=== PATIENT | female | born 1980 | race Caucasian/White ===

== ENCOUNTER 2016-09-14 23:02 | Emergency (ER) | payer MEDICAID ==
[2015-02-27 08:16] VITALS: BMI 18.8
[~2016-09-14 23:02] MED LIST: CARAFATE1 G PO; DEXILANT60 MG PO; HYDROCODON-ACET15 ML PO; KLONOPIN0.5 MG PO; KLONOPIN1 MG PO; LAMICTAL XR25 MG PO; LAMICTAL100 MG PO; LITHIUM CARBON150 MG PO; LITHIUM CARBON300 MG PO; MELATONIN 10 M1 EACH PO; TOPAMAX200 MG PO; VALIUM5 MG PO; ZOFRAN ODT4 MG/UDTAB PO; ZOVIRAX200 MG PO
== END 2016-09-15 02:22 | disposition home or self-care (01) ==
LOC: D.ER 23:02
DX: M79.1 Myalgia (principal); R07.9 Chest pain, unspecified; K21.9 Gastro-esophageal reflux disease without esophagitis; F17.200 Nicotine dependence, unspecified, uncomplicated

== ENCOUNTER 2016-11-17 11:00 | Emergency (ER) | payer MEDICAID ==
[2015-02-27 08:16] VITALS: BMI 18.8
[2016-11-17 11:56] LABS: BASOPHILS 0.5 % (0-2); EOSINOPHILS 1.2 % (0-7); HEMOGLOBIN 13.7 g/dL (12-16); IMMATURE GRANULOCYTES 0.1 % (0-5); LYMPHOCYTES 35.5 % (15-50); MCH 30.8 pg (26.0-34.0); MCHC 34.3 g/dL (31.0-37.0); MCV 89.9 fL (80.0-100.0); MEAN PLATELET VOLUME 10.5 fL (7.4-10.4); NEUTROPHILS 53.7 % (40-80); PLATELET COUNT 277 10x3/uL (130-400); RBC 4.45 10x6/uL (4.00-5.40); RDW 12.4 % (11.5-14.5); WBC 8.4 10x3/uL (4.8-10.8)
[2016-11-17 12:15] LABS: AMYLASE - SERUM 76 U/L (25-115); LIPASE 141 U/L (73-393)
[2016-11-17 12:16] LABS: TROPONIN-I < 0.017 ng/mL (0.000-0.060)
[2016-11-17 12:36] LABS: THYROID STIMULATING HORMONE 0.77 uIU/mL (0.36-3.74)
[2016-11-17 12:47] LABS: APPEARANCE CLEAR (CLEAR); BILIRUBIN NEGATIVE (NEGATIVE); COLOR YELLOW (YELLOW); GLUCOSE NEGATIVE (NEGATIVE); KETONE NEGATIVE (NEGATIVE); LEUKOCYTE ESTERASE NEGATIVE (NEGATIVE); NITRITE NEGATIVE (NEGATIVE); PROTEIN NEGATIVE (NEGATIVE); UROBILINOGEN NORMAL (NORMAL)
== END 2016-11-17 14:30 | disposition home or self-care (01) ==
LOC: D.ER 11:00
PROVIDERS: Family Medicine
DX: R10.13 Epigastric pain (principal); R00.2 Palpitations; K44.9 Diaphragmatic hernia without obstruction or gangrene; K21.9 Gastro-esophageal reflux disease without esophagitis; F17.200 Nicotine dependence, unspecified, uncomplicated

== ENCOUNTER 2016-11-17 19:30 | Emergency (ER) | payer MEDICAID ==
[2015-02-27 08:16] VITALS: BMI 18.8
== END 2016-11-17 20:08 | disposition left against medical advice (07) ==
LOC: D.ER 19:30
DX: R07.9 Chest pain, unspecified (principal)

== ENCOUNTER 2017-06-08 10:57 | Emergency (ER) | payer MEDICAID ==
[2015-02-27 08:16] VITALS: BMI 18.8
[2017-06-08 12:36] LABS: BASOPHILS 0.2 % (0-2); EOSINOPHILS 0.9 % (0-7); HEMATOCRIT 42.6 % (36.0-48.0); HEMOGLOBIN 14.2 g/dL (12-16); IMMATURE GRANULOCYTES 0.2 % (0-5); LYMPHOCYTES 11.7 % (15-50); MCH 30.4 pg (26.0-34.0); MCHC 33.3 g/dL (31.0-37.0); MCV 91.2 fL (80.0-100.0); MEAN PLATELET VOLUME 10.1 fL (7.4-10.4); MONOCYTES 4.3 % (2-11); NEUTROPHILS 82.7 % (40-80); PLATELET COUNT 229 10x3/uL (130-400); RBC 4.67 10x6/uL (4.00-5.40); RDW 12.3 % (11.5-14.5); WBC 10.9 10x3/uL (4.8-10.8)
[2017-06-08 12:48] LABS: AMYLASE - SERUM 69 U/L (25-115); LIPASE 123 U/L (73-393)
== END 2017-06-08 13:21 | disposition home or self-care (01) ==
LOC: D.ER 10:57
PROVIDERS: Emergency Medicine
DX: K21.9 Gastro-esophageal reflux disease without esophagitis (principal); F17.200 Nicotine dependence, unspecified, uncomplicated

== ENCOUNTER 2017-11-27 07:38 | Emergency (ER) | payer MEDICAID ==
[~2017-11-27] VITALS: Ht 160 cm; Wt 63.6 kg
[2017-11-27 07:45] VITALS: Ht 160 cm; Wt 63.6 kg
[2017-11-27 08:04] LABS: APPEARANCE CLEAR (CLEAR); BILIRUBIN NEGATIVE (NEGATIVE); COLOR YELLOW (YELLOW); GLUCOSE NEGATIVE (NEGATIVE); KETONE NEGATIVE (NEGATIVE); NITRITE NEGATIVE (NEGATIVE); PROTEIN NEGATIVE (NEGATIVE); SPECIFIC GRAVITY 1.005 (1.005-1.020); UROBILINOGEN NORMAL (NORMAL)
[2017-11-27 08:06] LABS: BASOPHILS 0.2 % (0-2); EOSINOPHILS 0.6 % (0-7); HEMATOCRIT 42.7 % (36.0-48.0); IMMATURE GRANULOCYTES 0.1 % (0-5); LYMPHOCYTES 37.2 % (15-50); MCH 30.6 pg (26.0-34.0); MCHC 35.1 g/dL (31.0-37.0); MCV 87.1 fL (80.0-100.0); MEAN PLATELET VOLUME 10.5 fL (7.4-10.4); MONOCYTES 12.8 % (2-11); NEUTROPHILS 49.1 % (40-80); RDW 11.9 % (11.5-14.5); WBC 8.4 10x3/uL (4.8-10.8)
[2017-11-27 08:07] LABS: PLATELET COUNT 307 10x3/uL (130-400)
[2017-11-27 08:18] LABS: ALBUMIN 4.3 g/dL (3.4-5.0); ANION GAP 12.4 mmol/L (8-16); BILIRUBIN - TOTAL 0.64 mg/dL (0.2-1.3); CALCIUM 8.5 mg/dL (8.5-10.1); CREATININE - SERUM 0.9 mg/dL (0.6-1.3); POTASSIUM - SERUM 3.4 mmol/L (3.5-5.1); PROTEIN - SERUM 8.4 g/dL (6.4-8.2)
[2017-11-27] MEDS ORDERED: OMNICEF300 MG PO (10:50)
[2017-11-27 10:57] VITALS: BP 122/80
== END 2017-11-27 17:07 | disposition home or self-care (01) ==
LOC: D.ER 07:38
PROVIDERS: Family Medicine
DX: J01.90 Acute sinusitis, unspecified (principal); R53.81 Other malaise; M79.1 Myalgia

== ENCOUNTER 2018-02-17 19:12 | Emergency (ER) | payer MEDICAID ==
[~2018-02-17] VITALS: Ht 160 cm; Wt 61.4 kg
[~2018-02-17 19:12] MED LIST changes: +OMNICEF300 MG PO
[2018-02-17 19:19] VITALS: Ht 160 cm; Wt 61.4 kg
[2018-02-17] MEDS ORDERED: AUGMENTIN 875-11 TAB PO (20:25)
[2018-02-17] MEDS ORDERED: FLUTICASONE PRO16 GM NASAL (20:25)
[2018-02-17 20:42] VITALS: BP 125/70
== END 2018-02-17 20:43 | disposition home or self-care (01) ==
LOC: D.ER 19:12
DX: J01.90 Acute sinusitis, unspecified (principal)

== ENCOUNTER 2018-03-18 17:32 | Emergency (ER) | payer MEDICAID ==
[~2018-03-18] VITALS: Ht 160 cm; Wt 60.5 kg
[~2018-03-18 17:32] MED LIST changes: +AUGMENTIN 875-11 TAB PO; +FLUTICASONE PRO16 GM NASAL
[2018-03-18 17:53] VITALS: Ht 160 cm; Wt 60.5 kg
[2018-03-18 18:36] LABS: BASOPHILS 0.5 % (0-2); EOSINOPHILS 1.3 % (0-7); HEMATOCRIT 38.8 % (36.0-48.0); IMMATURE GRANULOCYTES 0.1 % (0-5); LYMPHOCYTES 46.7 % (15-50); MCHC 33.5 g/dL (31.0-37.0); MCV 89.6 fL (80.0-100.0); MONOCYTES 8.5 % (2-11); NEUTROPHILS 42.9 % (40-80); PLATELET COUNT 243 10x3/uL (130-400); RBC 4.33 10x6/uL (4.00-5.40); RDW 12.1 % (11.5-14.5); WBC 8.2 10x3/uL (4.8-10.8)
[2018-03-18 18:44] LABS: ALBUMIN 3.8 g/dL (3.4-5.0); ALKALINE PHOSPHATASE 82 U/L (46-116); ALT (SGPT) 60 U/L (10-68); BILIRUBIN - TOTAL 0.17 mg/dL (0.2-1.3); CALC OSMOLALITY 276 mosm/kg (275-300); CALCIUM 8.5 mg/dL (8.5-10.1); CARBON DIOXIDE 22.6 mmol/L (21.0-32.0); CHLORIDE - SERUM 105 mmol/L (98-107); CREATININE - SERUM 0.6 mg/dL (0.6-1.3); GLUCOSE 100 mg/dL (74-106); POTASSIUM - SERUM 3.2 mmol/L (3.5-5.1); PROTEIN - SERUM 7.4 g/dL (6.4-8.2); SODIUM 139 mmol/L (136-145); UREA NITROGEN 11 mg/dL (7-18); eGFR NON AFRICAN AMERICAN > 90 mL/min (90-120)
[2018-03-18 18:57] LABS: CREATINE KINASE 68 UL (21-215)
[2018-03-18 19:01] LABS: TROPONIN-I < 0.017 ng/mL (0.000-0.060)
[2018-03-18] MEDS ORDERED: ATIVAN1 MG PO (19:16)
[2018-03-18 19:50] VITALS: BP 116/78
== END 2018-03-18 19:50 | disposition home or self-care (01) ==
LOC: D.ER 17:32
PROVIDERS: Family Medicine
DX: R07.9 Chest pain, unspecified (principal); F41.9 Anxiety disorder, unspecified; R53.83 Other fatigue; R42 Dizziness and giddiness

== ENCOUNTER → 2018-03-28 09:44 | Outpatient (CLI) | payer MEDICAID ==
[2018-03-18 17:53] VITALS: BMI 23.6
--- NOTE | ~2018-03-28 | ST ---
PATIENT:CHRISTIANO WERNER MEDICAL RECORD: [id number] SEX: F LOCATION:[facility] ORDER #: ADMISSION DATE: 03/28/18 AGE OF PATIENT: 37 REFERRING PHYSICIAN: INTERPRETING PHYSICIAN: DIAMOND MCNAIR MD DATE OF SERVICE: 03/28/2018 PROCEDURE: Nuclear stress test. INDICATION: Chest pain, family history of coronary artery disease. She was exercised on standard Rui protocol for 9 minutes, terminated due to achievement of max target heart rate response with 32 mCi of sestamibi injected at peak stress, 11 mCi were used previously for rest images. FINDINGS: Gated SPECT reveals a preserved ejection fraction of 63% with good wall motioning, thickening, and brightening throughout all segments. SPECT imaging Cardiolite was used as myocardial perfusion agent. There is reversible ischemia anteriorly and apically. This includes basal, mid, apical anterior segments as well as the apex itself. The degree of reversibility is mild to moderate. The amount of myocardium involved is moderate. OVERALL IMPRESSION: This is an abnormal nuclear stress test with reversible ischemia anteroapically, suggestive of hemodynamically significant coronary artery disease. We will proceed with coronary angiography as followup study. TRANSINT:[id number] Voice Confirmation ID: [id number] DOCUMENT ID: [id number] DIAMOND MCNAIR MD CC: [id number] DICTATION DATE: 03/30/18 1039 LINEWORKER: 03/30/181915 [facility] CLI 03/28/18 [address] [place] [address]
[~2018-03-28 09:44] MED LIST changes: +ATIVAN1 MG PO
== END | disposition home or self-care (01) ==
LOC: D.HCCARDIO 09:44
DX: R07.9 Chest pain, unspecified (principal)

== ENCOUNTER 2018-04-01 08:31 | Outpatient (CLI) | payer MEDICAID ==
[~2018-04-01] VITALS: Ht 160 cm; Wt 60.5 kg
--- NOTE | ~2018-04-01 | HEMODYNAMI ---
PATIENT:CHRISTIANO WERNER MEDICAL RECORD: [id number] : 78 LOCATION:[facility] ADMISSION DATE: 04/01/18 Generatedon:04/01/201813:58 Patient name: CHRISTIANO WERNER Patient #: [id number] SSN: : 1980 Date of study: 04/01/2018 Page: Of Hemodynamic Procedure Report Patient Data Patient Demographics Procedure consent was obtained First Name: CHRISTIANO Gender: Female Last Name: DEBBI : 1980 Middle Initial: L Age: 37 year(s) Patient #: [id number] Race: Unknown Additional ID: [id number] Contact details [address]: [address] [place] [address] State: [place] City: [place] Zip code: [address] Past Medical History Allergies: No known allergies Admission Admission Data Admission Date: 04/01/2018 Admission Time: 8:31 Procedure Procedure Types Cath Procedure Diagnostic Procedure LHC LHC w/Coronaries Sedation Charges Moderate Sedation up to 15 minutes Procedure Description Procedure Date Procedure Date: 04/01/2018 Procedure Start Time: 13:49 Procedure End Time: 13:56 Procedure Staff Name Function Shyam Hrenandez MD Performing Physician Namita Georges RT Monitor Chavez Aly RN Nurse Duarte Ang RT Scrub Procedure Data Cath Procedure Fluoroscopy Diagnostic fluoroscopy Total fluoroscopy Time: 0.7 time: 0.7 min min Diagnostic fluoroscopy Total fluoroscopy dose: 256 dose: 256 mGy mGy Contrast Material Contrast Material Type Amount (ml) Isovue 300 45 Entry Location Entry Primary Successful Side Size Upsize Upsize Entry Closure Bustillo ccessful Closure Location (Fr) 1 (Fr) 2 (Fr) Remarks Device Remarks Radial Right 6 Fr Mechanical artery Short Compression Estimated blood loss: 5 ml Diagnostic catheters Device Type Used For End Catheter Placement DIAGNOSTIC [place] 110cm 5 LV Angiography Fr catheter ([id number]) DIAGNOSTIC [place] 110cm 5 Right Coronary Fr catheter ([id number]) Angiography DIAGNOSTIC [place] 110cm 5 Left Coronary Fr catheter ([id number]) Angiography Procedure Complications No complications Procedure Medications Medication Administration Route Dosage 0.9% NaCl I.V. 100 ml/hr Oxygen etCO2 Nasal cannula 2 l/min Heparin Flush Bag added to field 2 bags (1000units/500ml NS) Lidocaine 2% added to field 20 Radial Cocktail added to field 1 syringe (Verapomil 2mg/Nitro 400mcg/Heparin 1500units) Versed I.V. 2 mg Fentanyl I.V. 100 mcg Versed I.V. 2 mg Fentanyl I.V. 100 mcg Versed I.V. 2 mg Fentanyl I.V. 100 mcg Versed I.V. 2 mg Radial Cocktail I.A. 1 syringe (Verapomil 2mg/Nitro 400mcg/Heparin 1500units) Lopressor I.V. 5 mg Hemodynamics Rest Heart Rate: 100 (bpm) Snapshots Pre Cath Intra NCS Post Cath Vital Signs Time Heart Resp SPO2 etCO2 NIBP Rhythm Pain Sedation Rate (ipm) (%) (mmHg) (mmHg) Status Level (bpm) 13:13:31 96 15 100 0 115/85(98) NSR 0 (11) 10(A) , No pain 13:17:40 97 13 99 0 127/82(97) NSR 0 (11) 10(A) , No pain 13:21:48 97 12 99 0 118/81(93) NSR 0 (11) 10(A) , No pain 13:26:00 95 14 98 0 116/77(93) NSR 0 (11) 10(A) , No pain 13:30:12 107 15 98 0 118/75(92) NSR 0 (11) 10(A) , No pain 13:34:22 99 18 89 0 108/70(81) NSR 0 (11) 10(A) , No pain 13:38:32 100 16 94 0 123/73(85) NSR 0 (11) 10(A) , No pain 13:42:40 103 15 97 0 111/74(93) NSR 0 (11) 10(A) , No pain 13:46:52 102 14 92 0 109/69(91) NSR 0 (11) 10(A) , No pain 13:50:58 115 12 94 0 108/82(97) NSR 0 (11) 10(A) , No pain 13:55:09 103 18 94 0 102/63(84) NSR 0 (11) 10(A) , No pain Medications Time Medication Route Dose Verified Delivered Reason Notes Effectiveness by by 13:14:25 0.9% NaCl I.V. 100 Chavez Chavez Per ml/hr Lorigan Kylahigan physician RN RN 13:14:38 Oxygen etCO2 2 l/min Chavez Chavez Per Nasal Sheeba Aly physician cannula RN RN 13:14:51 Heparin Flush added 2 bags Chavez Chavez used for Bag to Lorigan Lorigan procedure (1000units/500ml field RN RN NS) 13:15:03 Lidocaine 2% added 20ml Chavez Chavez for local to vial Lorigan Lorigan anesthetic field RN RN 13:15:17 Radial Cocktail added 1 Chavez Chavez used for (Verapomil to syringe Lorigan Lorigan procedure 2mg/Nitro field RN RN 400mcg/Heparin 1500units) 13:31:24 Versed I.V. 2 mg Chavez Chavez for sedation Sheeba Aly RN RN 13:31:34 Fentanyl I.V. 100 mcg Chavez Chavez for sedation Lorkirk Aly RN RN 13:32:17 Versed I.V. 2 mg Chavez Chavez for sedation Lorigan Lorigan RN RN 13:32:24 Fentanyl I.V. 100 mcg Chavez Chavez for sedation Lorkirk Aly RN RN 13:45:57 Versed I.V. 2 mg Chavez Chavez for sedation Lorkirk Monteroigan RN RN 13:46:07 Fentanyl I.V. 100 mcg Chavez Chavez for sedation Lorkirk Aly RN RN 13:49:24 Versed I.V. 2 mg Chavez Chavez for sedation Lorigan Sheeba RN RN 13:50:41 Radial Cocktail I.A. 1 Chavez Shyam for (Verapomil syringe Lorigan Tauth MD vasodilation 2mg/Nitro RN 400mcg/Heparin 1500units) 13:53:30 Lopressor I.V. 5 mg Chavez Chavez for Lorigan Lorigan arrhythmia RN manager language Log Time Note 12:55:05 Duarte Ang RT(R) sent for patient. Start room use. 12:55:06 Time tracking: Regular hours (M-F 7:00 - 5:00) 12:55:11 Plan of Care:Hemodynamics will remain stable., Cardiac rhythm will remain stable., Comfort level will be maintained., Respiratory function will remain adequate., Patient/ family verbilizes understanding of procedure., Procedure tolerated without complication., Recovers from procedure without complications.. 13:03:15 Patient received from ED to CCL 3 Alert and oriented. Tansferred to table in Supine position. 13:03:16 Warm blankets applied, and julieth hugger turned on for patient comfort. 13:03:17 Correct patient and procedure confirmed by team. 13:03:18 Signed procedure consent form obtained from patient. 13:03:18 ECG and BP/O2 sat monitors applied to patient. 13:03:19 Full Disclosure recording started 13:12:29 Vital chart was started 13:14:25 0.9% NaCl 100 ml/hr I.V. was administered by Chavez Aly RN; Per physician; 13:14:38 Oxygen 2 l/min etCO2 Nasal cannula was administered by Chavez Aly RN; Per physician; 13:14:51 Heparin Flush Bag (1000units/500ml NS) 2 bags added to field was administered by Chavez Aly RN; used for procedure; 13:15:03 Lidocaine 2% 20ml vial added to field was administered by Chavez Aly RN; for local anesthetic; 13:15:17 Radial Cocktail (Verapomil 2mg/Nitro 400mcg/Heparin 1500units) 1 syringe added to field was administered by Chavez Aly RN; used for procedure; 13:16:28 Baseline sample Acquired. 13:16:31 Rhythm: sinus rhythm 13:16:38 H&P Date Dictated: 04/01/2018 ER History on chart.. 13:16:40 Pre-procedure instructions explained to patient. 13:16:40 Pre-op teaching completed and patient verbalized understanding. 13:16:42 Family in waiting room. 13:16:44 Patient NPO since Midnight. 13:16:52 Patient allergic to No known allergies 13:16:55 Is the patient allergic to Iodine/contrast media? No. 13:17:01 Is patient on blood thinner?No 13:17:08 Patient diabetic? No. 13:17:12 Previous problem with sedation/anesthesia? No ? 13:17:14 Snore? No 13:17:15 Sleep apnea? No 13:17:16 Deviated septum? No 13:17:17 Opens mouth fully? Yes 13:17:18 Sticks out tongue? Yes 13:17:21 Airway obstruction? No ? 13:17:34 Dentures? No ? 13:17:43 Pre procedure: right dorsailis pedis pulse 2+ Normal; easily identifiable; not easily obliterated 13:17:45 Modified Kunal's test Ulnar < 7 seconds 13:17:47 Patient pain scale 0/10 ?. 13:18:01 IV patent on arrival in left antecubital with 0.9% NaCl at [facility]. 13:18:03 Lab results completed and on chart. 13:18:08 Right Radial & Right Groin area was prepped with chlora-prep and draped in sterile fashion 13:18:09 Alarms reviewed by R. N. 13:18:10 Sharps counted by scrub and verified by R.N. 13:18:18 Use device set Radial Dx or PCI 13:18:19 ACIST Syringe (68031) opened to sterile field. 13:18:19 Medline Cath Pack ([id number]) opened to sterile field. 13:18:20 Bag Decanter (2002S) opened to sterile field. 13:18:20 DIAGNOSTIC WIRE .035 260cm J wire (158673) opened to sterile field. 13:18:21 ACIST Hand Control (01283) opened to sterile field. 13:18:21 ACIST Manifold (88572) opened to sterile field. 13:18:21 Tegaderm 4 x 4 (1626W) opened to sterile field. 13:18:22 MBrace Wrist Support ([id number]) opened to sterile field. 13:18:23 SHEATH 6FR Slender (801060) opened to sterile field. 13:20:24 Patient not . Patient has had tubal. 13:22:28 Physician paged 13:29:16 Final Timeout: patient, procedure, and site verified with staff and physician. All members of the team are in agreement. 13:29:20 Right Radial site verified by team. 13:29:23 Physical assessment completed. ASA score P 2 - A patient with mild systemic disease as per Shyam Hernandez MD. 13:29:26 Sedation plan: IV Moderate Sedation Medication:Versed, Fentanyl 13:29:57 Zero performed for pressure channel P1 13:30:02 Zero performed for pressure channel P1 13:30:06 Zero performed for pressure channel P1 13:30:11 Zero performed for pressure channel P1 13:31:24 Versed 2 mg I.V. was administered by Chavez Aly RN; for sedation; 13:31:34 Fentanyl 100 mcg I.V. was administered by Chavez Aly RN; for sedation; 13:32:17 Versed 2 mg I.V. was administered by hCavez Aly RN; for sedation; 13:32:24 Fentanyl 100 mcg I.V. was administered by Chavez Aly RN; for sedation; 13:45:57 Versed 2 mg I.V. was administered by Chavez Aly RN; for sedation; 13:46:07 Fentanyl 100 mcg I.V. was administered by Chavez Aly RN; for sedation; 13:49:24 Versed 2 mg I.V. was administered by Chavez Aly RN; for sedation; 13:49:30 Procedure started. 13:49:51 Local anesthetic to right radial artery with Lidocaine 2% by Shyam Hernandez MD.INITIAL ACCESS ONLY 13:50:32 A 6 Fr Short sheath was inserted into the Right Radial artery 13:50:41 Radial Cocktail (Verapomil 2mg/Nitro 400mcg/Heparin 1500units) 1 syringe I.A. was administered by Shyam Hernandez MD; for vasodilation; 13:51:43 A DIAGNOSTIC [place] 110cm 5 Fr catheter (645061) was advanced over the wire and used for LV Angiography. 13:52:19 LV gram done using GUTIERREZ 13:52:23 EF : 55 % 13:52:29 Injector settings: Ml/sec: 5, Volume: 15, 13:52:34 A DIAGNOSTIC [place] 110cm 5 Fr catheter (219540) was advanced over the wire and used for Right Coronary Angiography. 13:52:49 A DIAGNOSTIC [place] 110cm 5 Fr catheter (587988) was advanced over the wire and used for Left Coronary Angiography. 13:53:21 Catheter removed. 13:53:29 TR BAND Standard ([id number]) opened to sterile field. 13:53:30 Lopressor 5 mg I.V. was administered by Chavez Aly RN; for arrhythmia; 13:53:55 Sheath removed intact; hemostasis achieved with Mechanical Compression to the Right Radial artery. 13:53:56 Procedure ended.(Physican Out) 13:54:06 Fluoroscopy time 00.70 minutes. 13:54:10 Flurop Dose total: 256 13:54:10 Fluoroscopy dose: 256 mGy 13:54:16 Contrast amount:Isovue 300 45ml. 13:54:18 Sharps counted by scrub and verified by R.N. 13:54:27 TR band inflated with 10cc of air. 13:54:28 Insertion/operative site no bleeding no hematoma. 13:54:49 Post right radial artery:stable, clean and dry 13:54:54 Post Procedure Pulses reassessed and unchanged 13:55:00 Post-procedure physical assessment completed. ASA score P 2 - A patient with mild systemic disease as per Shyam Hernandez MD. 13:55:02 Post procedure rhythm: unchanged. 13:55:06 Estimated blood loss: 5 ml 13:55:07 Post procedure instruction explained to patient.Patient verbalizes understanding. 13:55:07 Patient needs reinforcement of post procedure teaching. 13:55:25 Procedure type changed to Cath procedure, Diagnostic procedure, LHC, LHC w/Coronaries, Sedation Charges, Moderate Sedation up to 15 minutes 13:55:27 See physician's report for complete and final results. 13:55:32 Procedure Complication : No complications 13:55:48 Procedure and supply charges have been captured, reviewed, submitted and are correct. 13:56:30 Vital chart was stopped 13:56:32 Report given to Pre/Post Procedure Room. 13:56:36 Patient transfered to Pre/Post Procedure Room with Stretcher. 13:56:48 Procedure ended. 13:56:48 Full Disclosure recording stopped 13:56:52 End room use (Document Last) Device Usage Item Name Manufacture Quantity Catalog Hospital Part Current Minimal Lot# / Number Charge Number Stock Stock Serial# Code ACIST Acist 1 42983 164120 [id number] [id number] 20 Syringe INTERNET BUSINESS TRADER (07567) Systems Inc Medline Medline 1 [id number] 000029 99446 126645 5 Cath Pack ([id number]) Bag Microtek 1 018259 13072 565781 5 Decanter Medical Inc. () DIAGNOSTIC St Fran 1 347296 680314 226057 319261 30 WIRE .035 260cm J wire (372698) ACIST Hand Acist 1 11413 913654 792745 109114 5 Control Medical (46131) Systems Inc ACIST Acist 1 81597 349450 428747 794127 5 Manifold Medical (67713) Systems Inc Tegaderm 4 3M 1 1626W 593853 173260 405661 5 x 4 (1626W) MBrace Advanced 1 140-0250-00 532256 39134 799912 5 Wrist Vascular Support Dynamics ([id number]) SHEATH 6FR Terumo 1 [id number] 505331 849531 742067 5 Slender (80-1060) DIAGNOSTIC Terumo 1 40-9072 152462 665055 024348 5 [place] 110cm 5 Fr catheter (900526) TR BAND Terumo 1 [id number] 414600 677924 911287 40 Standard ([id number]) Signature Audit Butler Stage Time Signature Unsigned Intra-Procedure 04/01/2018 Namita 1:58:00 PM Counts RT(R) Signatures Monitor : Namita Signature : Counts RT Date : Time : [address] [place] [address]
[2018-04-01 08:34] VITALS: Ht 160 cm; Wt 60.5 kg
[2018-04-01 09:31] LABS: BASOPHILS 0.4 % (0-2); EOSINOPHILS 0.5 % (0-7); HEMATOCRIT 44.6 % (36.0-48.0); IMMATURE GRANULOCYTES 0.3 % (0-5); LYMPHOCYTES 23.8 % (15-50); MCH 30.2 pg (26.0-34.0); MCHC 33.6 g/dL (31.0-37.0); MCV 89.7 fL (80.0-100.0); MONOCYTES 9.6 % (2-11); NEUTROPHILS 65.4 % (40-80); RBC 4.97 10x6/uL (4.00-5.40); RDW 11.9 % (11.5-14.5); WBC 10.3 10x3/uL (4.8-10.8)
[2018-04-01 09:37] LABS: HCG SERUM NEGATIVE (NEGATIVE); PLATELET COUNT 314 10x3/uL (130-400)
[2018-04-01 09:48] LABS: ALBUMIN 4.2 g/dL (3.4-5.0); ALKALINE PHOSPHATASE 76 U/L (46-116); ALT (SGPT) 63 U/L (10-68); BILIRUBIN - TOTAL 0.54 mg/dL (0.2-1.3); CALC OSMOLALITY 276 mosm/kg (275-300); CARBON DIOXIDE 27.5 mmol/L (21.0-32.0); CHLORIDE - SERUM 101 mmol/L (98-107); CREATININE - SERUM 0.7 mg/dL (0.6-1.3); GLUCOSE 101 mg/dL (74-106); POTASSIUM - SERUM 3.7 mmol/L (3.5-5.1); PROTEIN - SERUM 8.3 g/dL (6.4-8.2); SODIUM 139 mmol/L (136-145); UREA NITROGEN 9 mg/dL (7-18); eGFR NON AFRICAN AMERICAN > 90 mL/min (90-120)
[2018-04-01 09:49] LABS: TROPONIN-I < 0.017 ng/mL (0.000-0.060)
[2018-04-01 09:53] LABS: CALCIUM 9.4 mg/dL (8.5-10.1)
[2018-04-01 13:07] VITALS: BP 109/72
--- NOTE | 2018-04-01 14:10 | NUR ---
PT RECEIVED VIA STRETCHER FROM ENGRAVER LETTER FOR RECOVERY. AWAKE BUT DROWSY. HR NSR RATE 88, BP 98/48, O2 SAT 95 ON ROOM AIR. TR BAND TO R WRIST IN PLACE, DRESSING CDI NO BLEEDING OR HEMATOMA NOTED. PT DENIES PAIN OR NAUSEA. CALL LIGHT IN REACH, INSTRUCTED TO KEEP R ARM STRAIGHT.
--- NOTE | 2018-04-01 14:25 | NUR ---
PATIENT RESTING, FAMILY PRESENT AT BEDSIDE. VSS ON ROOM AIR. RIGHT TR BAND IN PLACE, NO S/S OF BLEEDING OR HEMATOMA.
--- NOTE | 2018-04-01 14:57 | NUR ---
PT SLEEPING WITH FAMILY AT BEDSIDE. HR 77 NSR, BP 87/50. TR BAND IN PLACE NO BLEEDING OR SWELLING NOTED. CALL LIGHT IN REACH. OFFERED SOMETHING TO DRINK OR EAT AND PT REFUSED.
--- NOTE | 2018-04-01 15:13 | NUR ---
4 CC OF AIR REMOVED FROM TR BAND, NO BLEEDING OR SWELLING NOTED. PT DENIES PAIN OR NAUSEA. APPLE JUICE GIVEN PER REQUEST. HOB ELEVATED. CALL LIGHT IN REACH, FAMILY REMAINS AT BEDSIDE
--- NOTE | 2018-04-01 15:36 | NUR ---
3 ADD'L CC OF AIR REMOVED FROM TR BAND. NO BLEEDING OR SWELLING NOTED. SANDWICH AND DRINK SERVED PER REQUEST. VSS, DENIES PAIN OR NAUSEA.
--- NOTE | 2018-04-01 15:50 | NUR ---
IV REMOVED WITH CATH INTACT, MONITORS REMOVED. DISCHARGE TEACHING REVIEWED WITH PT AND MOTHER, BOTH VERBALIZED UNDERSTANDING. PT UP TO DRESS FOR DISCHARGE
--- NOTE | 2018-04-01 16:05 | NUR ---
TR BAND REMOVED AFTER ADDITIONAL AIR REMOVED. DRESSING APPLIED. NO BLEEDING OR SWELLING NOTED. PT DISCHARGED VIA WC TO PRIVATE VEHICL
--- NOTE | 2018-04-12 13:29 | OP ---
PATIENT NAME: CHRISTIANO WERNER MEDICAL RECORD: [id number] :78 LOCATION:[facility] ADMISSION DATE: SURGEON: DIAMOND MCNAIR MD DATE OF OPERATION: 04/01/2018 DATE OF SERVICE: 04/01/2018 PROCEDURES: 1. Left heart catheterization. 2. Selective coronary angiography. 3. Left ventriculogram. DESCRIPTION OF PROCEDURE: After informed consent was obtained and after a detailed description of the risks, benefits as well as alternative therapies, the patient elected to proceed with angiogram and heart catheterization. The right radial artery was prepped and draped in normal sterile fashion. Right radial artery was cannulated via modified Seldinger technique with placement of 5-Chinese sheath. All catheters exchanged through this sheath. FINDINGS: Left ventriculogram was performed in standard 30-degree GUTIERREZ view, reveals good cardiac wall motion throughout all segments. Overall ejection fraction estimated at 60%. SELECTIVE CORONARY ANGIOGRAPHY: Left main, left anterior descending, left circumflex, right coronary artery are smooth-walled vessels with no angiographic evidence of coronary artery disease. OVERALL IMPRESSION: 1. No angiographic evidence of coronary artery disease. 2. Normal left heart pressures. 3. Normal left ventricular systolic function. Chest pain is noncardiac in etiology. No further cardiac workup needs to be ascertained. TRANSINT:[id number] Voice Confirmation ID: [id number] DOCUMENT ID: [id number] DIAMOND MCNAIR MD at 1329 CC: [id number] DICTATION DATE: 04/01/18 1358 HUMAN RESOURCES PSYCHOLOGIST: 04/01/188 [facility] CLI 04/01/18 [place] [address]
== END 2018-04-01 16:05 | disposition home or self-care (01) ==
LOC: D.ER 08:31 → D.CATH 08:31 → EDSTATUS 08:51 → D.CATH 16:05
PROVIDERS: Family Medicine; Internal Medicine Interventional Cardiology
DX: R07.89 Other chest pain (principal)

== ENCOUNTER 2019-11-09 15:53 | Emergency (ER) | payer BC ==
[~2019-11-09] VITALS: Ht 160 cm; Wt 66.8 kg
[2019-11-09 15:59] VITALS: Ht 160 cm; Wt 66.8 kg
[2019-11-09 16:48] LABS: BASOPHILS 0.6 % (0-2); EOSINOPHILS 1.6 % (0-7); HEMATOCRIT 42.2 % (36.0-48.0); IMMATURE GRANULOCYTES 0.1 % (0-5); LYMPHOCYTES 46.8 % (15-50); MCH 29.9 pg (26.0-34.0); MCHC 33.2 g/dL (31.0-37.0); MCV 90.2 fL (80.0-100.0); MEAN PLATELET VOLUME 10.4 fL (7.4-10.4); MONOCYTES 10.8 % (2-11); NEUTROPHILS 40.1 % (40-80); PLATELET COUNT 291 10x3/uL (130-400); RBC 4.68 10x6/uL (4.00-5.40); RDW 12.2 % (11.5-14.5); WBC 6.8 10x3/uL (4.8-10.8)
[2019-11-09 16:57] LABS: CALC OSMOLALITY 276 mosm/kg (275-300); CALCIUM 9.1 mg/dL (8.5-10.1); CARBON DIOXIDE 29.5 mmol/L (21.0-32.0); CHLORIDE - SERUM 104 mmol/L (98-107); CREATININE - SERUM 0.7 mg/dL (0.6-1.3); GLUCOSE 104 mg/dL (74-106); POTASSIUM - SERUM 3.7 mmol/L (3.5-5.1); SODIUM 140 mmol/L (136-145); UREA NITROGEN 8 mg/dL (7-18); eGFR NON AFRICAN AMERICAN > 90 mL/min (90-120)
[2019-11-09 17:03] LABS: ALBUMIN 3.8 g/dL (3.4-5.0); ALKALINE PHOSPHATASE 77 U/L (30-120); ALT (SGPT) 93 U/L (10-68); AMYLASE - SERUM 67 U/L (25-115); BILIRUBIN - TOTAL 0.31 mg/dL (0.2-1.3); LIPASE 63 U/L (73-393); PROTEIN - SERUM 7.4 g/dL (6.4-8.2)
[2019-11-09 17:05] LABS: TROPONIN-I < 0.017 ng/mL (0.000-0.060)
[2019-11-09 19:22] LABS: BILIRUBIN NEGATIVE (NEGATIVE); GLUCOSE NEGATIVE (NEGATIVE); KETONE NEGATIVE (NEGATIVE); NITRITE NEGATIVE (NEGATIVE); UROBILINOGEN NORMAL (NORMAL)
[2019-11-09] MEDS ORDERED: BENTYL 20 MG TA20 MG PO (20:33)
[2019-11-09 20:45] VITALS: BP 124/71
== END 2019-11-09 20:45 | disposition home or self-care (01) ==
LOC: D.ER 15:53
DX: R10.32 Left lower quadrant pain (principal); K76.0 Fatty (change of) liver, not elsewhere classified; K58.9 Irritable bowel syndrome, unspecified; K21.9 Gastro-esophageal reflux disease without esophagitis

== ENCOUNTER → 2019-12-01 09:01 | Outpatient (CLI) | payer BC ==
[2019-11-09 15:59] VITALS: BMI 26.1
[~2019-12-01 09:01] MED LIST changes: +BENTYL 20 MG TA20 MG PO
== END | disposition home or self-care (01) ==
LOC: D.RAD 09:00
PROVIDERS: ATTEND Internal Medicine Gastroenterology
DX: J39.2 Other diseases of pharynx (principal)

== ENCOUNTER 2020-06-12 14:41 | Emergency (ER) | payer BC ==
[~2020-06-12] VITALS: Ht 160 cm; Wt 63.7 kg
[2020-06-12 15:01] VITALS: Ht 160 cm; Wt 63.7 kg
[2020-06-12 15:41] VITALS: BP 115/84
[2020-06-12] MEDS ORDERED: FLUTICASONE PRO16 GM NASAL (16:08)
[2020-06-12] MEDS ORDERED: ZYRTEC10 MG PO (16:09)
== END 2020-06-12 16:16 | disposition home or self-care (01) ==
LOC: D.ER 14:41
DX: J30.2 Other seasonal allergic rhinitis (principal); K21.9 Gastro-esophageal reflux disease without esophagitis

== ENCOUNTER → 2020-07-31 08:23 | Outpatient (CLI) | payer MEDICAID ==
[2020-06-12 15:01] VITALS: BMI 24.8
[~2020-07-31 08:23] MED LIST changes: +ZYRTEC10 MG PO
[2020-07-31 09:48] LABS: ALBUMIN 3.8 g/dL (3.4-5.0); BILIRUBIN - DIRECT 0.08 mg/dL (0.00-0.30); BILIRUBIN - INDIRECT 0.19 mg/dL (0.00-1.00); BILIRUBIN - TOTAL 0.27 mg/dL (0.2-1.3); PROTEIN - SERUM 7.5 g/dL (6.4-8.2)
== END | disposition home or self-care (01) ==
LOC: D.US 08:15
PROVIDERS: ATTEND Internal Medicine Gastroenterology
DX: K76.0 Fatty (change of) liver, not elsewhere classified (principal)